=== PATIENT | male | born 1990 | race Caucasian/White ===

== ENCOUNTER 2021-08-30 20:07 | Emergency (ER) | payer BC ==
[2021-08-30 20:34] VITALS: TEMP 98.6
[2021-08-30] MEDS ORDERED: ONDANSETRON ODT 4 MG TAB PO STA (20:42)
--- NOTE | 2021-08-30 20:59 | XR ---
EXAMINATION TYPE: XR chest 2V DATE OF EXAM: 08/30/2021 COMPARISON: NONE HISTORY: Fever TECHNIQUE: 2 view FINDINGS: Heart and mediastinum are normal. Lungs are clear. Diaphragm is normal. Bony thorax appears normal. IMPRESSION: Normal chest.
--- NOTE | 2021-08-30 21:14 | ED ---
General Adult HPI - General Chief complaint: Nausea/Vomiting/Diarrhea Stated complaint: COVID+/Fever Time Seen by Provider: 08/30/21 20:35 Source: patient Mode of arrival: ambulatory Limitations: no limitations - History of Present Illness Initial comments: Patient is a 30-year-old male who tested positive for Covid yesterday, presenting with chief complaint of nausea. Patient states that his symptoms began yesterday and he feels worse today. Patient states that during a previous illness he had severe nausea and vomiting which caused him to lose co nsciousness, and he wants to ensure that this does not happen again. Patient has not vomited at home. He admits to mild fever and body aches. He denies any chest pain, shortness of breath, palpitations, abdominal pain, , dysuria, hematuria, urgency, frequency, diarrhea, constipation, hematochezia. - Related Data Previous Rx's Medication Instructions Recorded Ondansetron Odt [Zofran Odt] 4 mg PO Q8HR PRN #10 tab 08/30/21 Allergies Allergy/AdvReac Type Severity Reaction Status Date / Time No Known Allergies Allergy Verified 08/30/21 20:57 Review of Systems ROS Statement: Those systems with pertinent positive or pertinent negative responses have been documented in the HPI. ROS Other: All systems not noted in ROS Statement are negative. Past Medical History Past Medical History: No Reported History Past Surgical History: No Surgical Hx Reported Past Psychological History: No Psychological Hx Reported Smoking Status: Never smoker Past Alcohol Use History: Occasional Past Drug Use History: None Reported General Exam Limitations: no limitations General appearance: alert, in no apparent distress Head exam: Present: atraumatic, normocephalic, normal inspection Eye exam: Present: normal appearance, EOMI. Absent: scleral icterus Neck exam: Present: normal inspection Respiratory exam: Present: normal lung sounds bilaterally. Absent: respiratory distress, wheezes, rales, rhonchi, stridor Cardiovascular Exam: Present: regular rate, normal rhythm, normal heart sounds. Absent: systolic murmur, diastolic murmur, rubs, gallop, clicks GI/Abdominal exam: Present: soft, normal bowel sounds. Absent: distended, tenderness, guarding, rebound, rigid Neurological exam: Present: alert, oriented X3, CN II-XII intact Psychiatric exam: Present: normal affect, normal mood Skin exam: Present: warm, dry, intact, normal color. Absent: rash Course Vital Signs 08/30/21 08/30/21 20:31 21:37 Temperature 98.6 F Pulse Rate 96 84 Respiratory 20 18 Rate Blood Pressure 125/40 135/92 O2 Sat by Pulse 98 96 Oximetry Medical Decision Making - Medical Decision Making Patient is a 30-year-old male presenting with chief complaint of nausea. Patient tested positive for Covid yesterday and states that his symptoms have gotten worse today. On examination there is no abdominal tenderness, abdomen is soft and nondistended. Heart and lungs are clear to auscultation. Patient is given Zofran, on reassessment he states his symptoms have improved. Chest x-ray is negative for any acute process. Patient is counseled on supportive treatment and quarantine guidelines. Patient is provided with a prescription for Zofran. Follow-up with PCP in one week. Report back to ER with any new or worsening symptoms. I discussed return parameters and answered all questions. Patient conveyed verbal understanding and agreed to the plan. I discussed this case with my attending Dr. Castillo. Disposition Clinical Impression: COVID-19 Disposition: HOME SELF-CARE Condition: Good Instructions (If sedation given, give patient instructions): Acute Nausea and Vomiting (ED), COVID-19 (Coronavirus Disease 2019) (ED), How to Recover from COVID-19 at Home (ED) Additional Instructions: Follow-up with PCP in one week. Report back to ER if any new or worsening symptoms. Take medication as prescribed. Take Motrin and Tylenol for pain and fever control as needed. Prescriptions: Ondansetron Odt [Zofran Odt] 4 mg PO Q8HR PRN #10 tab PRN Reason: Nausea Is patient prescribed a controlled substance at d/c from ED?: No Referrals: None,Stated [Primary Care Provider] - 1-2 days Time of Disposition: 21:14
[2021-08-30 21:38] VITALS: BP 135/92; PULSE 84; RESP 18
== END 2021-08-30 21:38 | disposition home or self-care (01) ==
LOC: EC 20:07
DX: U07.1 COVID-19 (principal)
CPT/HCPCS: 71046; 99283